=== PATIENT | male | born 2000 ===

== ENCOUNTER 2023-06-25 14:05 | Emergency (ER) | payer MEDICAID, SELFPAY ==
[2023-06-25 14:47] VITALS: BP 124/70; PULSE 59; RESP 18; TEMP 36.7; O2SAT 100; BMI 25.8
--- NOTE | 2023-06-25 14:47 | ED_ITS ---
HPI - Abdominal Pain General Chief Complaint: General Medical Stated Complaint: hemmrohids Time Seen by Provider: 06/25/23 17:24 Source: patient Mode of arrival: ambulatory Limitations: no limitations History of Present Illness HPI narrative: 23-year-old male presents stating he has hemorrhoids he has had them for 4 years, suffers of chronic constipation, he reports there now the size of a grape in uncomfortable, has not seen a specialist for this. They are not bleeding there just uncomfortable. Denies nausea, vomiting, abdominal pain, headache, vision changes, dizziness, changes in urinary habits. No fevers or chills. Related Data Previous Rx's Medication Instructions Recorded docusate sodium 100 mg capsule 100 mg PO BID #20 caps 06/25/23 (Colace) ketorolac 10 mg tablet 10 mg PO TID PRN pain 5 days #15 06/25/23 tabs morphine 15 mg immediate release 15 mg PO Q6H PRN pain 5 days #10 06/25/23 tablet tabs polyethylene glycol 3350 17 17 g PO BID #238 grams 06/25/23 gram/dose oral powder (Miralax) pramoxine 1 % topical foam 1 appl [place] BID #15 grams 06/25/23 (Proctofoam) sennosides 8.6 mg tablet (senna) 8.6 mg PO BEDTIME #14 tabs 06/25/23 Allergies Allergy/AdvReac Type Severity Reaction Status Date / Time No Known Allergies Allergy Unverified 07/01/20 16:51 Review of Systems Review of Systems Constitutional : No Weight loss, No Fever, No Chills, No Fatigue, No Malaise ENT/Mouth : No sore throat, No Rhinorrhea Eyes: No Eye Pain, No Swelling, No Redness Cardiovascular : No Chest Pain, No SOB, No Dyspnea on Exertion, No Orthopnea, No Edema, No Palpitations Respiratory : No Cough, No Sputum, No Wheezing Gastrointestinal : No Nausea, No Vomiting, No Diarrhea, No Constipation, No abdominal Pain, No Hematochezia, No Melena Genitourinary : No Dysuria, No Urinary Frequency, No Hematuria, + Hemorrhoids Musculoskeletal : No joint pain, No Myalgias, No Joint Swelling Skin : No Skin Lesions, No rash Neuro : No Weakness, No Numbness, No Dizziness, No Headache Psych : No Anxiety/Panic, No Depression All other systems reviewed and are negative Yes all other systems are reviewed and are negative [facility] Past Medical History Attestation statement: The following information was validated with the patient. Source: old records reviewed and nursing notes reviewed Physical Exam ED Vital Signs: Vital Signs - 24 hr 06/25/23 14:47 Temperature 98.1 F Pulse Rate 59 Respiratory Rate 18 Blood Pressure 124/70 Pulse Oximetry 100 Oxygen Delivery Method Room Air BMI result Body Mass Index 25.8 vss Appearance: Alert.? Oriented X3.? No acute distress.? Head: Normocephalic, atraumatic, no step-offs or deformities Eyes: Pupils equal, round and reactive to light.? CVS: Normal heart rate and rhythm.? Pulses normal.? Respiratory: No respiratory distress.? Breath sounds normal.? Abdomen: Soft and nontender.? Skin: Skin warm and dry.? Normal skin color.? Normal skin turgor.? Extremities: No lower extremity edema.? No calf ttp. 5/5 strength to bilateral upper and lower extremities Back: No midline tenderness, no C-spine tenderness, full range of motion, no CVA tenderness bilaterally Neuro: Oriented X 3.? No motor deficit.? No sensory deficit. CN 2-12 intact Sensitive: external nonthrombosed hemorrhoids noted to rectal area, normal rectal tone. No signs of bright red blood per rectum. No internal hemorrhoids palpated. (Mei ANDERSON at bedside material handler loader) Course Course Course Narrative: RME - 23 yo presenting to the ER for evaluation of worsening rectal pain for the last 3 days. Known hemorrhoids x4 years with chronic constipation. Using preparation H with no relief. He reports they are palpable and the size of a grape. No bleeding Plan: rectal exam in C Reevaluation(s) Reevaluation #1: Large clot expressed status post elliptical incision to thrombosed hemorrhoid. Patient tolerated procedure well. States he is already feeling much better. Normal rectal tone after the fact. Will send him home with stool softeners. Proctofoam. Will also give him morphine for pain control educated on proper narcotic use. Will give Toradol now for pain. As patient did drive himself here. Educated patient on diagnosis and treatment plan, answered all question, patient verbalizes understanding. At this time patient will be discharged home, advised to return with new or worsening symptoms. Educated on worrisome signs and symptoms and when to return. At this time I feel comfortable discharge home. Time: 18:16 Medical Decision Making Medical Decision Making [facility] Narrative: 1957 23-year-old male presents with concerns that he has hemorrhoids worsening of the past 3 days trying preparation H with little to no relief. Physical exam with external nonthrombosed hemorrhoid. Mei PA-S as material handler loader This is likely a thrombosed hemorrhoid. No signs of rectal prolapse. No signs of lower GI bleed at this time. Elliptical incision made. plan at this time will discharge home with Proctofoam and general surgery follow-up. Educated patient on diagnosis and treatment plan, answered all question, patient verbalizes understanding. At this time patient will be discharged home, advised to return with new or worsening symptoms. Educated on worrisome signs and symptoms and when to return. At this time I feel comfortable discharge home. Differential Diagnosis Differential Diagnoses: The differential diagnosis associated with the presentation includes This is likely a thrombosed hemorrhoid. No signs of rectal prolapse. No signs of lower GI bleed at this time. Admission/Observation Consideration of admission/observation: Escalation of care including admission/observation considered no indication Prescription Management I considered prescription management with: Other Critical Care Time Critical Care Time Critical Care Time: No Discharge Plan Discharge Clinical Impression: External hemorrhoid, thrombosed Patient Disposition: Home, Self-Care Instructions: Hemorrhoids (ED) Additional Instructions: Take your medications as prescribed. If you were prescribed antibiotics today, it is important that you take your medication to their entirety, do not skip any doses, do not finish them early. Follow-up with your primary care provider this week. Please follow-up with general surgery Return to the emergency department with new or worsening symptoms. Such as fevers, chills, chest pain, shortness of breath, nausea, vomiting, dizziness, headache, vision changes, lethargy In case of emergency call 911 A narcotic has been sent to your pharmacy please take this as prescribed. Do not take more than the prescribed dose. Narcotic medications can cause addiction. Please do not mix them with alcohol. Do not take them while driving or operating machinery. Do not take them with any other narcotics. Do not share them with friends or family. They can cause constipation. Take them only for severe pain. Toradol has been sent to your pharmacy, you tolerated this well in the department. Please take this as prescribed do not take this with ibuprofen, or other NSAIDs, do not mix this with alcohol. Side effects of this medication including increased risk for bleeding and possible kidney injury. Prescriptions: New pramoxine [Proctofoam] 1 % foam 1 appl [place] BID Qty: 15 0RF sennosides [senna] 8.6 mg tablet 8.6 mg PO BEDTIME Qty: 14 0RF docusate sodium [Colace] 100 mg capsule 100 mg PO BID Qty: 20 0RF polyethylene glycol 3350 [Miralax] 17 gram/dose powder 17 g PO BID Qty: 238 0RF morphine 15 mg tablet 15 mg PO Q6H PRN (Reason: pain) 5 Days Qty: 10 0RF Rx Instructions: Partial Fill upon patient request. ketorolac 10 mg tablet 10 mg PO TID PRN (Reason: pain) 5 Days Qty: 15 0RF Referrals: [facility] [place] [facility] [Provider Group] - 2 days Physician,Unknown J [Primary Care Provider] - 2 days Stand Alone Forms: Work/School Release
[2023-06-25] MEDS: Ketorolac Tromethamine 30 MG/ML VIAL IM (18:24)
[2023-06-25] MEDS: Lidocaine HCl 1 % 20 ML VIAL 8 ML SUBCUT (18:27)
== END 2023-06-25 18:27 | disposition home or self-care (01) ==
PROVIDERS: Emergency Provider Emergency Medicine
DX: K64.5 Perianal venous thrombosis (principal); K59.00 Constipation, unspecified; K62.89 Other specified diseases of anus and rectum; Z79.899 Other long term (current) drug therapy
CPT/HCPCS: 96372; 99283; 99284; J1885